=== PATIENT | male | born 1960 | race Two or more races ===

== ENCOUNTER 2025-02-15 17:54 | Emergency (ER) | payer BC, OTHER ==
[~2025-02-15] VITALS: Ht 170.2 cm; Wt 93.1 kg
[2025-02-15 17:57] VITALS: TEMP 97.5
--- NOTE | 2025-02-15 18:38 | ED.PDOC ---
History of Present Illness HPI Comments 65 year old male came to ER for left elbow pain. At around 3pm, patient was at a [employer] when he lost his balance and fell backwards. Patient attempted to stop his fall by holding unto something with his outstretched left arm, however he felt something pop at his left elbow. Since then, patient has been having difficulty/ pain when he tries to extend his elbow. No other injuries noted REVIEW OF SYSTEMS: General: No weakness. HEENT: No ear pain, no throat pain Cardiac: No chest pain. No palpitations. Lungs: No shortness of breath, no cough. GI: Epigastric pressure. : No dysuria, frequency, or urgency. No hematuria. Musculoskeletal: LT elbow pain, LT elbow pain Skin: No rash, no itching. Neuro: No Headache, no weakness PHYSICAL EXAM: General: Awake, alert and oriented. No acute distress. Skin: Skin in warm, dry and intact without rashes or lesions. HEENT: The head is normocephalic and atraumatic. Conjunctivae are clear without exudates or hemorrhage. Sclera is non-icteric. Neck: Normal range of motion. No JVD. Cardiac: Regular rate Respiratory: No signs of respiratory distress. No Stridor. Left upper extremity: medial elbow swelling and tenderness. Decreased range of motion to extension, patient is not able to fully extend the elbow. Strength, capillary refill, sensation, pulses intact distally. No other obvious deformity. Neurological: The patient is awake, alert and oriented to person, place, and time with normal speech. Speech is clear. There is no facial asymmetry. Psychiatric: Appropriate mood and affect. Good judgement and insight. Chief Complaint: Upper Extremity Time Seen by MD: 18:38 Reviewed Notes: Nurses Notes Allergies: Coded Allergies: NO KNOWN ALLERGIES (Unverified , 02/15/25) Information Source: Patient Mode of Arrival: Ambulatory Severity: Moderate Timing: Hours Duration: Since onset Past Medical History PAST MEDICAL HISTORY: Denies Surgical History: Denies all surgeries Family History Family History: Reviewed,noncontributory to illness Social History Smoker: Non-Smoker Alcohol: Denies ETOH Use Drugs: Denies Drug Use Lives In: Home Was a procedure done? Was a procedure done?: No Differential Dx Considerations may include: dislocation, fracture, sprain, neurovascular injury, other X-Ray, Labs, Meds, VS Vital Signs Date Time Temp Pulse Resp B/P (MAP) Pulse Ox O2 Delivery O2 Flow Rate FiO2 02/15/25 17:57 97.5 69 18 154/78 94 97.5 PROCEDURE(s): LELB3 - L ELBOW 3 VIEW XRAY REASON: Suspected elbow dislocation w/ spontaneous reduction. ORDER NUMBER(s): [id number], ACCESSION NUMBER(s): [id number] CLINICAL INDICATION: Suspected elbow dislocation w/ spontaneous reduction. TECHNIQUE: 3 radiographic views of the left elbow were obtained. Comparison: None FINDINGS/IMPRESSION: There is no evidence of acute fracture or dislocation. The visualized joint space is well maintained. The alignment is anatomical. There is no radiopaque foreign body. Time of 1ST Reevaluation: 18:33 Reevaluation 1ST: Unchanged Patient Education/Counseling: Need For Follow Up Family Education/Counseling: No Family Present SEPSIS Sepsis Screen Date sepsis recognized/suspect: Feb 15, 2025 Time Sepsis recognized/suspect: 1800 Recent Procedure: No On Antibiotic Therapy: No Respiratory Rate >20: No Heart Rate >90: No Temp<36 C (96.8 F) or >38.3 C: No SBP <90 or MAP <65 mmHG: No New Acute Mental Status Change: No Is the patient on CPAP, BIPAP,: No Physician Orders L Elbow 3 View Xray (02/15/25 18:42) Splints (02/15/25 ) Vital Signs Date Time Temp Pulse Resp B/P (MAP) Pulse Ox O2 Delivery O2 Flow Rate FiO2 02/15/25 17:57 97.5 69 18 154/78 94 97.5 Departure 1 Departure Time of Disposition: 20:28 Impression: Primary Impression: Injury of left elbow Disposition: 01 HOME / SELF CARE / HOMELESS Condition: Stable Additional Instructions: ED DISCHARGE INSTRUCTIONS Instructions: Please read all instructions provided in this packet carefully. Keep sling and splint in place until you follow up with your primary care provider. You will need a referral to see an orthopedic podiatrist for further evaluation of your elbow injury. Although you have been discharged from the Emergency Department, this does not mean that you have a "clean bill of health". No definitive diagnosis for your symptoms has been made today. It is possible that you are in the process of developing a serious illness. This is why you must return to the ED without fail if any new or worsening symptoms (especially if your symptoms include chest pain, trouble breathing, abdominal pain, fever, headache, confusion, trouble seeing, or trouble walking) It is also very important that you see a primary care provider (PCP) within the next 3-5 days to follow up. If you are unable to get an appointment, return to the ED for re-evaluation. e-Prescriptions Ibuprofen (Ibuprofen) 600 Mg Tab 1 TAB PO TID for 5 Days, #15 TAB Prov: DOLLY YATES MD 02/15/25 Acetaminophen (Acetaminophen Er) 650 Mg Tab 650 MG PO TIDPRN PRN, #15 TAB Prov: DOLLY YATES MD 02/15/25 Comments 65-year-old male with injury of left elbow suspected dislocation with spontaneous reduction Splint placed in the emergency department. Imaging shows no acute fracture or dislocation. Patient advised to follow up with the primary care provider promptly. Critical Care Note Critical Care Time?: No Stability Stability form required: No Heart Score Heart Score: Heart Score Response (Comments) Value History N/A 0 EKG N/A 0 Age N/A 0 Risk Factors N/A 0 Troponin N/A 0 Total 0 I personally scribed for DOLLY YATES MD ([email or web address]) on 02/15/25 at 18:38. Electronically submitted by Marco Ruiz ([employer]). I personally scribed for DOLLY YATES MD ([email or web address]) on 02/15/25 at 19:32. Electronically submitted by Marco Ruiz ([employer]). I personally scribed for DOLLY YATES MD ([email or web address]) on 02/15/25 at 20:20. Electronically submitted by Marco Ruiz ([employer]). DOLLY YATES MD Feb 15, 2025 18:38
--- NOTE | 2025-02-15 19:30 | DVH ---
CLINICAL INDICATION: Suspected elbow dislocation w/ spontaneous reduction. TECHNIQUE: 3 radiographic views of the left elbow were obtained. Comparison: None FINDINGS/IMPRESSION: There is no evidence of acute fracture or dislocation. The visualized joint space is well maintained. The alignment is anatomical. There is no radiopaque foreign body.
[2025-02-15 20:00] VITALS: BP 142/86; PULSE 76; RESP 18; O2SAT 98
[2025-02-15] MEDS ORDERED: IBUP-1454 PO (20:30)
[2025-02-15] MEDS ORDERED: ACET650T12 PO (20:30)
== END 2025-02-15 21:27 | disposition home or self-care (01) ==
LOC: ER 17:54
DX: S59.902A Unspecified injury of left elbow, initial encounter (principal); W01.0XXA Fall on same level from slipping, tripping and stumbling without subsequent striking against object, initial encounter; Y93.89 Activity, other specified; Y92.89 Other specified places as the place of occurrence of the external cause; Y99.8 Other external cause status
CPT/HCPCS: 29105; 73080